=== PATIENT | female | born 1935 | race Caucasian/White ===

== ENCOUNTER 2019-11-19 08:28 | Outpatient (CLI) | payer MEDICARE, SELFPAY ==
--- NOTE | ~2019-11-19 | XR_ITS ---
EXAMINATION: XR barium swallow DATE: 11/19/2019 09:17 INDICATION: Dysphagia, unspecified TECHNIQUE: The patient drank thick barium, gas-producing crystals, and thin barium. Fluoroscopy of th e hypopharynx and esophagus was performed. Fluoroscopy exposure time was 1.6 minutes. The DAP for thi s procedure was 5.103 Gycm2. COMPARISON: 12/29/2007 FINDINGS: There is no mass or stricture of the esophagus. Mild presbyesophagus is noted. There is a l arge hiatal hernia with the stomach now intrathoracic in location. 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 There was no definite gastroesophageal reflux. Moderate cervical spondylosis is noted.] IMPRESSION: 1. Intrathoracic stomach with organoaxial volvulus. 2. Mild presbyesophagus. Reviewed, dictated and finalized at location A.
== END 2019-11-19 08:29 | disposition home or self-care (01) ==
PROVIDERS: PCP Internal Medicine; Visit Provider Nurse Practitioner
DX: R13.10 Dysphagia, unspecified (principal); K22.8 Other specified diseases of esophagus
CPT/HCPCS: 74220

== ENCOUNTER → 2020-09-27 10:30 | Outpatient (CLI) | payer MEDICARE, SELFPAY ==
--- NOTE | ~2020-09-27 | XR_ITS ---
EXAMINATION: XR chest 2V DATE: 09/27/2020 10:52 INDICATION: Shortness of breath. TECHNIQUE: Frontal and lateral views of the chest were obtained. COMPARISON: Chest 2 views 07/29/2007 FINDINGS: There is a large hiatal hernia. There are airspace opacities in left lower lung zone. No pl eural effusion or pneumothorax. The heart size is normal. Surgical clips in the right upper quadrant are likely from cholecystectomy. IMPRESSION: 1. Large hiatal hernia. 2. Airspace opacities in left lower lung zone, consistent with atelectasis versus pneumonia. Reviewed, dictated and finalized at location A. IMPRESSION: 1. Large hiatal hernia. 2. Airspace opacities in left lower lung zone, consistent with atelectasis vers us pneumonia.
== END ==
PROVIDERS: PCP Internal Medicine; Visit Provider Nurse Practitioner
DX: R06.02 Shortness of breath (principal); K44.9 Diaphragmatic hernia without obstruction or gangrene; R91.8 Other nonspecific abnormal finding of lung field
CPT/HCPCS: 71046

== ENCOUNTER 2020-11-13 12:16 | Outpatient (CLI) | payer MEDICARE, SELFPAY ==
--- NOTE | 2020-11-13 17:01 | WPDPFTINT ---
PFT Procedure Performed PFT Procedure Performed Plethysmography (Lung Vol) Diffusing Cap (DLCO) Flow Vol Loop Spirometry w/o Bronchodil PFT Interpretation This is a pulmonary function test with spirometry, plethysmography and diffusing capacity. The test was performed and results interpreted in accordance with the 2019 and 2005 ATS/ERS Task Force guidelines respectively using the Global Lung Function Initiative-2012 reference equations. Patient demonstrated good effort and cooperation. Reproducibility criteria were met. The quality of the spirometry maneuver was Grade A. Findings: Spirometry: the contour of the inspiratory and expiratory flow tracing are normal. The FVC is 1.68 L, 72% predicted. The FEV1 is 1.24 L, 70% predicted. The FEV1: FVC ratio 74%. Plethysmography: The total lung capacity is 4.38 L, 89% predicted. The functional residual capacity is 1.79 L, 63% predicted. The residual volume is 1.76 L, 73% predicted. Diffusing capacity: The absolute diffusion capacity is 7.5, 41% predicted. The diffusing capacity corrected for alveolar volume is 2.64, 64% predicted. Impression: The spirometry is normal without evidence of an obstructive abnormality. There is a reduction in the functional residual capacity with a normal total lung capacity. This is an abnormal but nonspecific lung volume pattern. The absolute diffusion capacity is moderately decreased and remains mildly decreased when corrected for alveolar volume. There are no prior studies for comparison
== END 2020-11-13 12:17 | disposition home or self-care (01) ==
LOC: ANHPFT 12:21
PROVIDERS: PCP Internal Medicine; Visit Provider Nurse Practitioner
DX: R06.02 Shortness of breath (principal)
CPT/HCPCS: 94375; 94726; 94729

== ENCOUNTER 2022-09-17 09:23 | Outpatient (CLI) | payer MEDICARE, SELFPAY ==
--- NOTE | 2022-09-17 09:37 | ECHO_ITS ---
Patient Info Name: Lima Garcia Age: 87 years : 1935 Gender: Female Ht: 60 in Wt: 145 lbs BSA: 1.69 m2 HR: 115 bpm BP: 168 / 92 mmHg Heart Rhythm: Sinus Rhythm Technical Quality: Good Exam Date: 09/17/2022 10:56 AM Exam Location: [facility] Patient Status: Outpatient Admit Date: 09/17/2022 Staff Ordering Physician: Piero Kaiser MD Head Refrigeration Engineer: Pau Ramos RDCS Attending Provider: Piero Kaiser MD Referring Physician: Job CASTELLON; Exam Type: CA echo doppler color flow Study Info Indications - AORTIC MURMUR Complete two-dimensional, color flow and Doppler transthoracic echocardiogram is performed. Summary 1. Complete two-dimensional, color flow and Doppler transthoracic echocardiogram is performed. 2. Left ventricular chamber dimension is normal. 3. Left ventricular systolic function is normal, estimated at 60-65%. 4. The left ventricular diastolic function is grade I diastolic dysfunction. 5. E/e' 16 is elevated. 6. There is severe aortic valve sclerosis. 7. There is severe aortic valve stenosis with a peak velocity of 272 cm/s, mean gradient of 14 mmHg, and aortic valve area of 0.7 cm2. 8. There is trace aortic valve regurgitation. 9. The mitral valve has mildly calcified leaflets and moderately calcified annulus. 10. There is mild tricuspid valve regurgitation. 11. No pulmonary hypertension, estimated pulmonary arterial systolic pressure is 31 mmHg. Left Ventricle E/e' 16 is elevated. Left ventricular chamber dimension is normal. Left ventricular systolic function is normal, estimated at 60-65%. The left ventricular diastolic function is grade I diastolic dysfunction. Right Ventricle Right ventricular systolic function is normal and with normal TAPSE 2.2 cm. Right ventricular chamber dimension is normal. Left Atria Left atrial chamber dimension is normal. Right Atria Right atrial chamber dimension is normal. Aortic Valve The aortic valve is trileaflet. There is severe aortic valve sclerosis. There is severe aortic valve stenosis with a peak velocity of 272 cm/s, mean gradient of 14 mmHg, and aortic valve area of 0.7 cm2. There is trace aortic valve regurgitation. Pulmonic Valve There is no pulmonic regurgitation. Mitral Valve The mitral valve has mildly calcified leaflets and moderately calcified annulus. There is no mitral valve stenosis. There is no mitral valve regurgitation. Tricuspid Valve There is mild tricuspid valve regurgitation. No pulmonary hypertension, estimated pulmonary arterial systolic pressure is 31 mmHg. Pericardium/Pleural There is no pericardial effusion. Inferior Vena Cava Normal inferior vena cava with >50% collapse upon inspiration consistent with normal right atrial pressure, 5 mmHg. Aorta The aortic root size at the sinus of Valsalva is normal. Left Ventricular Outflow Tract Name Value Normal LVOT 2D LVOT Diameter 1.7 cm LVOT Doppler LVOT Peak Gradient 3 mmHg LVOT Mean Gradient 2 mmHg LVOT VTI 21 cm LVOT VTI/AV VTI Ratio 0.3 LVOT Stroke Volume 47 ml Pulmonic Valve
== END 2022-09-17 09:24 | disposition home or self-care (01) ==
PROVIDERS: PCP Family Medicine; Visit Provider Family Medicine
DX: R01.1 Cardiac murmur, unspecified (principal); I36.1 Nonrheumatic tricuspid (valve) insufficiency
CPT/HCPCS: 93306

== ENCOUNTER 2022-11-15 00:16 | Day surgery (SDC) | payer MEDICARE, SELFPAY ==
[2022-11-14 14:35] VITALS: BMI 28.3
[2022-11-15] VITALS (9 sets, daily range): BP systolic 159–188; BP diastolic 66–96; PULSE 76–83; RESP 12–16; TEMP 36.3–36.9; O2SAT 93–100; BMI 27.5
--- NOTE | 2022-11-15 10:33 | ECHO_ITS ---
Patient Info Name: Lima Garcia Age: 87 years : 1935 Gender: Female Ht: 60 in Wt: 145 lbs BSA: 1.69 m2 HR: 82 bpm BP: 174 / 75 mmHg Heart Rhythm: Sinus Rhythm Technical Quality: Good Exam Date: 11/15/2022 10:51 AM Exam Location: [facility] Patient Status: Outpatient Admit Date: 11/15/2022 Staff Ordering Physician: Nathan Mishra DO Jewel Lathe Operator: Nazia Izaguirre RDCS Attending Provider: Nathan Mishra DO Referring Physician: Tad ZUNIGA; Exam Type: CA echo transesophageal Study Info Indications I35.0 - Nonrheumatic aortic (valve) stenosis Complete two-dimensional, color flow and Doppler transesophageal study is performed. Procedure Details Risks/benefits/alternative to JUDY discuss with patient and she gave informed consent. Patient was monitored electrocardiographically, vitals and pulse ox and they remained stable. Cecacaine spray x 2 to posterior oropharynx. Fenatanyl 50 mcg and Versed 2 mg IV given for conscious sedation. JUDY probe advanced to oropharynx and she swallowed it without incident. Mulitiple images were obtained at various levels of esophagus. Agitated saline injection x1. JUDY probe withdrawn and no blood noted on probe tip. Patient tolerated procedure well. No complications. Summary 1. Left ventricular chamber dimension is normal. 2. There is mild concentric increased left ventricular wall thickness. 3. Left ventricular systolic function is normal with an ejection fraction of 60-65%. 4. Left atrial chamber dimension is severely enlarged. 5. There is severe aortic valve sclerosis. 6. There is trace aortic valve regurgitation. 7. There is severe aortic valve stenosis with valve area of 0.7 cm2 by planimetry. 8. The mitral valve has mildly calcified annulus. 9. There is trace tricuspid valve regurgitation. Left Ventricle Left ventricular systolic function is normal with an ejection fraction of 60-65%. The left ventricular diastolic function is indeterminate as it was not assessed.. Left ventricular chamber dimension is normal. There is mild concentric increased left ventricular wall thickness. Right Ventricle Right ventricular chamber dimension is normal. Right ventricular systolic function is normal. Left Atria Left atrial chamber dimension is severely enlarged. Right Atria Right atrial chamber dimension is normal. Atrial Septum Agitated saline injection opacified right side cardiac chambers without shunt to left side cardiac chambers. Intact interatrial septum visualized by 2D and agitated saline imaging. Atrial Appendage There is no thrombus visualized in the left atrial appendage. Aortic Valve There is severe aortic valve stenosis with valve area of 0.7 cm2 by planimetry. The aortic valve is trileaflet. There is severe aortic valve sclerosis. There is trace aortic valve regurgitation. Pulmonic Valve There is no pulmonic regurgitation. Mitral Valve The mitral valve has mildly calcified annulus. There is no mitral valve stenosis. There is no mitral valve regurgitation. Tricuspid Valve There is trace tricuspid valve regurgitation. Pericardium/Pleural There is no pericardial effusion. Inferior Vena Cava Inferior vena cava is not well visualized. Aorta The aortic root size at the sinus of Valsalva is normal. Report Signatures
== END 2022-11-15 13:15 | disposition home or self-care (01) ==
PROVIDERS: PCP Family Medicine; Visit Provider Internal Medicine Cardiovascular Disease
PROC: (CPT 93312; principal; 2022-11-15 11:15)
DX: I35.0 Nonrheumatic aortic (valve) stenosis (principal); I35.1 Nonrheumatic aortic (valve) insufficiency; I35.8 Other nonrheumatic aortic valve disorders; I34.81 Nonrheumatic mitral (valve) annulus calcification; I10 Essential (primary) hypertension; E78.2 Mixed hyperlipidemia; K21.9 Gastro-esophageal reflux disease without esophagitis
CPT/HCPCS: 93312; 93320; 93325; J2250; J2310; J3010; J7040

== ENCOUNTER 2022-12-04 01:20 | Day surgery (SDC) | payer MEDICARE, SELFPAY ==
[2022-12-03 11:02] VITALS: BMI 28.3
[2022-12-04] VITALS (10 sets, daily range): BP systolic 105–157; BP diastolic 54–103; PULSE 76–97; RESP 12–20; TEMP 36.6; O2SAT 92–97; BMI 28.8
[2022-12-04 09:03] LABS: Basophils Absolute Auto 0.1 K/mm3 (0.0-0.1); Eosinophils Absolute Auto 0.4 K/mm3 (0-0.3); Eosinophils Percent Auto 5.5 % (0-4.4); Hematocrit 40.3 % (37.0-47.0); Immature Granulocyte Absolute 0.03 K/mm3 (0.00-0.031); Immature Granulocyte Percent A 0.4 % (0-0.5); Lymphocytes Absolute Auto 2.06 K/mm3 (0.9-3.2); Lymphocytes Percent Auto 25.9 % (18.3-44.2); Mean Corpuscular HGB Conc 32.3 g/dl (32-36); Mean Corpuscular Hemoglobin 29.9 pg (26-34); Mean Corpuscular Volume 92.6 fl (80-100); Mean Platelet Volume 8.8 fl (7.4-10.4); Monocytes Absolute Auto 0.9 K/mm3 (0.1-0.6); Monocytes Percent Auto 11.2 % (2.6-8.5); Neutrophils Absolute Auto 4.4 K/mm3 (1.3-6.7); Platelet Count Result 323 k/mm3 (150-375); Red Blood Count 4.35 M/mm3 (4.2-5.4); Red Cell Distribution Width 12.9 % (11.5-14.5); White Blood Count 7.9 K/mm3 (4.5-10.0)
[2022-12-04 09:08] LABS: Anion Gap 6 mmol/L (8-16); Blood Urea Nitrogen 21 mg/dL (7-17); Carbon Dioxide 28 mmol/L (22-30); Chloride 104 mmol/L (98-107); Estimated CRCL calculation 37 ml/min; Estimated Glomerular Filt Rate > 60; Glucose 96 mg/dL (65-110); Potassium 4.1 mmol/L (3.4-5.0); Sodium 138 mmol/L (137-145)
--- NOTE | 2022-12-04 09:54 | WPDHPUPDATE1 ---
History and Physical Update Update Date/Time: 12/04/22 09:54 History and Physical has been reviewed, including an updated exam of the patient. There are NO changes in the patient's condition. Risks, benefits, and alternatives have been discussed and questions answered. Patient agrees to proceed with procedure.
--- NOTE | 2022-12-04 09:54 | WPDMODSED ---
Moderate Sedation Note-Pt Data Patient Data Diagnosis: Severe aortic stenosis Present Complaint: Severe aortic stenosis Procedure to be performed/Plan: Coronary angiography, left heart cath, right heart cath, +/- PCI Allergies Allergy/AdvReac Type Severity Reaction Status Date / Time atorvastatin Allergy Severe CANT Verified 12/04/22 08:57 BREATHE; ARMS AND LEGS FEEL HEAVY BREANA Inhibitors Allergy Unknown Hives Verified 12/04/22 08:57 clarithromycin Allergy Unknown hives Verified 12/04/22 08:57 Home Medications Medication Instructions Recorded Confirmed Type cholecalciferol (vitamin D3) 25 25 mcg PO DAILY 10/31/21 12/03/22 History mcg (1,000 unit) tablet diltiazem HCl 300 mg 300 mg PO DAILY #90 caps 05/06/22 12/03/22 Rx capsule,extended release 24 hr (Cartia XT) sertraline 100 mg tablet 150 mg PO DAILY #135 tabs 07/29/22 12/03/22 Rx losartan 100 mg tablet See Rx Instructions .Route 08/28/22 12/03/22 Rx .COMPLEX #90 tabs qtrczwp-okqiivxvrn-IVO-caffeine 30 2 cap PO HS PRN headache 11/14/22 12/03/22 History mg-50 mg-325 mg-40 mg capsule (Ascomp with Codeine) vit C 250 mg-E 90 mg-zinc 40 2 tablet PO DAILY 11/14/22 12/03/22 History mg-copper 1 it-jyiesw-twzuld chew tablet (PreserVision AREDS-2) lorazepam 1 mg tablet 1 mg PO TID PRN anxiety #80 tabs 11/17/22 12/04/22 Rx vitamin B complex (B 3 tablet PO DAILY 12/03/22 12/03/22 History Complex-Vitamin B12 tablet) Current Medications: Active Medications Sodium Chloride (Normal Saline Iv) 500 mls @ 100 mls/hr IV CONT .Q5H ZAYNAB Sedation/Anesthesia: No previous sedation/anesthesia problems (including family history). [facility] Past Medical History Medical History Cataract Chronic GERD Essential hypertension GERD (gastroesophageal reflux disease) Hiatal hernia Iron deficiency anemia Migraine Mixed hyperlipidemia Surgical History Surgical History History of appendectomy open appendectomy History of knee replacement Hx of cholecystectomy Laparoscopic cholecystectomy Family History Family History Father Family history of malignant neoplasm Acute myocardial infarction Sibling Family history of malignant neoplasm Mother Cancer Heart disease Unknown Cerebrovascular accident Other Family history of cardiovascular disease Social History Social History Social History: 2 cups coffee daily Smoking status: Never smoker Second hand tobacco smoke exposure: No Alcohol intake: never Substance use: never Substance use type: does not use Lack of Transportation: No Lack of Food: Never True Current Housing: I Have Housing Concerned About Future Housing: No Difficulty Paying Gas/Electric Bills: No Difficulty Paying for Meds: No Currently Unemployed: No Education: High School Diploma/GED Difficulty w/ Childcare or Family Care: No Living arrangements: with family Additional living arrangements comments: lives with daughter Occupation/Education: retired Gender identity (if verbalized by the patient): Female Spiritual care concerns: No Mod Sed Physical Exam Physical Exam Pre Procedural Exam: Normal: Appearance, Lungs, Heart Rate, Heart Rhythm, Neuro Exam, Abdomen, Extremities and Skin Hours since solid foods: 12 Hours since liquid intake: 8 Mallampati Classification: class II Internal Medicine - PN: Obj Da Vital Signs Vital Signs: Vital Signs - 24 hr 12/04/22 09:02 Temperature 36.6 C Pulse Rate 76 Respiratory Rate 16 Blood Pressure 148/70 H Pulse Oximetry 95 Oxygen Delivery Room Air Meds/Results Medications: Active Medications Generic Name Dose Route Start Last Admin Trade Name Freq PRN Reason Stop Dose Admin Sodium Chloride 500 mls @
--- NOTE | 2022-12-04 11:00 | WPDCARDPROC ---
Cardiac Cath Procedure Note Date of procedure:: 12/04/22 Performing physician:: CATHETERIZATION LABORATORY REPORT Procedure Date: 12/04/2022 Washer Blanket: Arnie Judd M.D., [facility]? Referring Physician: Dr. Nathan Mishra ? Anesthesia: Versed and Fentanyl were ordered and given in my presence at 10:14, procedure ended at 10:53. Supervision of nurse monitored moderate sedation with Versed and Fentanyl was provided for 39 minutes. Total of Versed 1.5mg and Fentanyl 50mcg were administered by the [employer] Testing Supervisor JOVANI Montelongo Pre-op Diagnosis: Severe aortic stenosis Post-op Diagnosis: 1. Non-obstructive coronary artery disease 2. Elevated right heart filling pressures 3. 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 Preserved cardiac output of 5.3 by Yomi 5. Preserved cardiac index of 3.3 by Yomi Procedure(s): 1. Moderate sedation 2. Ultrasound-guided access of the right common femoral artery and right femoral vein 3. Right heart cath 4. Coronary angiography 5. Angioseal closure of the right common femoral artery Access Site: Right common femoral artery Right femoral vein Brief History and Clinical Indications: Patient is an 87-year-old female who is referred for [facility] for severe aortic stenosis. All risks, benefits and alternatives to coronary angiography with or without percutaneous coronary intervention and right heart catheterization was discussed at length with the patient. Risk of complications including but not limited to bleeding, infection, arrhythmia, stroke, worsening kidney function, blood loss, groin hematoma, limb loss, emergency coronary artery bypass grafting, and even were discussed with the patient and all questions were answered. The patient understood and wished to proceed. Time out called, patient name, date of , medical record number, allergies, procedure performed, identify Washer Blanket, patient and staff member concurred with accurate data, procedure carried on. Findings: LEFT HEART CATHETERIZATION FINDINGS: 1. Left main: Large caliber vessel. The left main is calcified. The left main coronary artery is widely patent without any significant obstructive disease. 2. Left anterior descending: Large caliber vessel that tapers to small caliber distally. The LAD is a heavily calcified vessel. The LAD has mild diffuse disease without any significant obstructive angiographic disease. The diagonal branches are of very small caliber and diffusely diseased. 3. Left circumflex: Large caliber vessel. The left circumflex artery and the main marginal branches have mild diffuse disease without any significant obstructive angiographic disease. 4. Right coronary artery: Large caliber vessel. The RCA is a calcified vessel. The RCA is the dominant vessel. The RCA has mild diffuse disease without any significant obstructive angiographic disease. 5. Left ventricle: The aortic valve was not crossed due to known severe aortic stenosis. RIGHT HEART CATHETERIZATION FINDINGS: Pressures (mmHg): RA: 11mmHg RV: 39/14mmHg PA: 45/18mmHg with mean of 29mmHg PCWP: 17mmHg Saturations (%): PA: 64.5% Arterial: 86.2% CO/CI: Yomi CO: 5.3 Yomi CI: 3.3 PVR (VELASQUEZ): 2.2 Description of Procedure: Informed consent signed and placed in the chart. Patient transferred to director of cardiac cath lab room. Prepped and draped in usual sterile fashion. 2% lidocaine injected subcutaneously in right groin area. Micropuncture needle used to access right common femoral artery under ultrasound guidance. J wire advanced, micropuncture cannula placed. Right iliofemoral angiogram performed, access confirmed and micropuncture cannula exchanged for 5-FR sheath. Right femoral vein was accessed using micropuncture technique under ultrasound guidance. 7-FR sheath placed. 7F [place] catheter was advanced into the right side of the heart chambers and pressures were measured. 5F FL 4 diagnostic c
== END 2022-12-04 14:12 | disposition home or self-care (01) ==
PROVIDERS: PCP Family Medicine; Visit Provider Internal Medicine
PROC: (CPT 93566; principal; 2022-12-04 10:00)
DX: I35.0 Nonrheumatic aortic (valve) stenosis (principal); I25.10 Atherosclerotic heart disease of native coronary artery without angina pectoris; I27.20 Pulmonary hypertension, unspecified; I10 Essential (primary) hypertension; E78.2 Mixed hyperlipidemia
CPT/HCPCS: 36415; 80048; 85025; 93456; A9270; C1760; C1769; C1887; C1894; G0269; J1644; J2250; J3010; J7040

== ENCOUNTER 2023-03-27 20:43 | Emergency (ER) | payer MEDICARE, SELFPAY ==
--- NOTE | ~2023-03-27 | XR_ITS ---
EXAMINATION: XR chest PICC line DATE: 03/27/2023 20:56 INDICATION: PICC line placement TECHNIQUE: frontal view of the chest was obtained. COMPARISON: Chest radiograph dated 10/05/2020 FINDINGS: Left upper extremity peripherally inserted central venous catheter (PICC) tip at the junction of the left brachiocephalic vein and superior vena cava. Large hiatal hernia which projects over the left l ower lung zone with configuration better appreciated on prior esophagram dated 11/19/2019. No other ai rspace opacities, pulmonary edema, pleural effusion or pneumothorax. Heart size within normal limits for AP technique. Aortic valve repair. Cholecystectomy clips in right upper quadrant. Additional surg ical clips project over the upper lumbar spine. Moderate thoracic and severe upper lumbar spondylosis . IMPRESSION: 1. Left upper extremity PICC line tip at the junction of the left brachiocephalic vein and superior v omar cava. 2. Large hiatal hernia. Reviewed, dictated and finalized at location A. RVISOR RIPRAP PLACING IMPRESSION: 1. Left upper extremity PICC line tip at the junction of the left brachiocephal ic vein and superior vena cava. 2. Large hiatal hernia.
--- NOTE | ~2023-03-27 | CT_ITS ---
EXAMINATION: CT brain wo con DATE: 03/27/2023 22:39 INDICATION: Altered mental status TECHNIQUE: Computed tomography (CT) of the head was performed without intravenous contrast. Sagittal and coronal reconstructions were performed. The mA was adjusted according to patient size. Iterative reconstruction technique was employed. The dose-length product was 1135.00 mGy-cm. COMPARISON: head CT dated 02/27/11 FINDINGS: No acute intracranial hemorrhage, acute infarction or abnormal extra axial fluid collection. There is mild scattered white matter hypoattenuation consistent with chronic small vessel ischemic disease. S ymmetric prominence of the sulci consistent with mild age-appropriate diffuse cerebral volume loss. V entricles are normal and symmetric. No mass/mass effect. Mild mucosal thickening in the right maxilla ry sinus which also demonstrates thickened sclerotic bowers consistent with chronic sinusitis. The orb its and mastoid air cells are normal. Intracranial calcified cerebral atherosclerosis is noted. IMPRESSION: 1. No acute intracranial process. 2. Age-related changes including mild diffuse volume loss and mild scattered white matter hypoattenua tion consistent with chronic small vessel ischemic disease. Reviewed, dictated and finalized at location A. [facility] WORKER IMPRESSION: 1. No acute intracranial process. 2. Age-related changes including mild diffuse volume loss and mild scattered wh ite matter hypoattenuation consistent with chronic small vessel ischemic diseas e.
--- NOTE | ~2023-03-27 | CT_ITS ---
EXAMINATION: CTA chest PE abdomen pel DATE: 03/27/2023 22:40 INDICATION: Hypoxia TECHNIQUE: Computed tomography (CT) pulmonary angiogram of the chest was performed with 100 mL Omnipa que-350 intravenous contrast. Additional 3D reconstructions utilizing coronal maximum intensity proje ction (MIP) were performed. CT of the abdomen and pelvis was performed with intravenous contrast util izing the same contrast bolus following a short delay. Automated exposure control and iterative recon struction technique were employed. The dose-length product was 1831.00 mGy-cm. COMPARISON: CT abdomen pelvis dated 09/16/2007 FINDINGS: Chest: Excellent contrast opacification of the pulmonary arteries. There is mild streak artifact from dense contrast in the superior vena cava and right atrium. Mild scattered respiratory motion artifact which does not significantly limit evaluation. No pulmonary embolism. Very small bilateral posterior layer ing pleural effusions. There is consolidation with volume loss in the posterior basilar left lower lo be likely related to compressive atelectasis resulting from the large sliding-type hiatal hernia whic h contains nearly the entire stomach and and occupies the posterior half of the lower left hemithorax . Superimposed pneumonia in the collapsed portion of the left lower lobe is not excludable. There are scattered mild patchy groundglass opacities most prominent in the right upper lobe which could repre sent atelectasis, pneumonia or mild pulmonary edema. Cardiomegaly. Atherosclerotic coronary artery ca lcifications. No pericardial effusion. Status post aortic valve repair. Thoracic aorta is normal in c aliber with no dissection. Mild mediastinal and right hilar lymphadenopathy which more notable for nu mber than size and is likely reactive. Severe thoracic and lower cervical spondylosis. Abdomen/pelvis: Mild intrahepatic biliary ductal dilation which may be related to prior cholecystectomy with surgical clips at the gallbladder fossa. No evident dilation of the common bile duct. There is otherwise unre markable. Interval progression of now prominent fatty atrophy of the pancreas. Spleen, bilateral adre nal glands and kidneys are normal. Endoluminal stenting of the infrarenal aorta. No aneurysm. No casandra l obstruction. Mild diverticulosis along the sigmoid colon without adjacent inflammatory stranding to suggest diverticulitis. 2.1 cm enhancing fibroid at the lower uterine segment. Decompressed bladder is unremarkable. Small subcutaneous abscesses at the right inguinal region which likely represents a reported dehiscen t wound at this location. There several surgical clips surrounding the deeper abscess located lung th e anterior margin of the right common femoral artery which are likely related to prior vascular surge ry. There is a larger partially visualized intramuscular abscess extending at least 11.5 cm craniocau dally and measuring at least 5.9 x 3.1 cm in maximal transaxial dimensions within the quadriceps musc ulature at the proximal right thigh. There is also a 10.3 x 8.9 x 6.7 similar rim-enhancing loculated retroperitoneal fluid collection at the lateral right pelvis. There is however minimal surrounding i nflammatory stranding and is unclear whether this represents an additional abscess or possibly a paty anisha. There is a small tract extending from this fluid collection cephalad along side the right gonad al vein to near its confluence with the right renal vein. IMPRESSION: 1. No pulmonary embolism. 2. Mild scattered bilateral patchy groundglass opacities most prominent in the right upper lobe which could represent atelectasis, pneumonia or mild pulmonary edema. 4. Partial collapse of the posterior basilar left lower lobe likely resulting from mass effect from a large hiatal hernia which contains the majority the stomach. Superimposed pneumonia not excludable. 5. Cardiomegaly with aortic valve repair.
--- NOTE | 2023-03-27 20:45 | ECG_ITS ---
Measurements Intervals Bowler Rate: 93 P: 45 [place]: 185 QRS: -17 QRSD: 85 T: 85 QT: 389 QTc: 484 Interpretive Statements SINUS RHYTHM POSSIBLE LEFT ATRIAL ENLARGEMENT CONSIDER ANTERIOR INFARCT, AGE INDETERMINATE INFERIOR INFARCT, AGE INDETERMINATE NONSPECIFIC T-WAVE ABNORMALITY- HIGH LATERAL LEADS ABNORMAL ECG NO PREVIOUS ECG AVAILABLE FOR COMPARISON Electronically Signed On 03-27-2023 22:15:28 AUTOMOBILE REPOSSESSOR by Nathan Mishra D.O.
[2023-03-27 20:50] LABS: Glucose Point of Care 144 mg/dl (65-105)
[2023-03-27 20:52] VITALS: BP 143/64; PULSE 82; PULSE 85; RESP 14; TEMP 36.5; O2SAT 100
[2023-03-27 21:45] LABS: Basophils Absolute Auto 0.1 K/mm3 (0.0-0.1); Basophils Percent Auto 1.2 % (0.2-1.2); Eosinophils Absolute Auto 0.4 K/mm3 (0-0.3); Eosinophils Percent Auto 6.2 % (0-4.4); Hematocrit 32.5 % (37.0-47.0); Hemoglobin 10.1 g/dL (12.0-15.0); Immature Granulocyte Absolute 0.06 K/mm3 (0.00-0.031); Immature Granulocyte Percent A 0.9 % (0-0.5); Lymphocytes Absolute Auto 1.64 K/mm3 (0.9-3.2); Lymphocytes Percent Auto 24.9 % (18.3-44.2); Mean Corpuscular HGB Conc 31.1 g/dl (32-36); Mean Corpuscular Hemoglobin 30.3 pg (26-34); Mean Corpuscular Volume 97.6 fl (80-100); Mean Platelet Volume 8.8 fl (7.4-10.4); Monocytes Percent Auto 15.3 % (2.6-8.5); Neutrophils Absolute Auto 3.4 K/mm3 (1.3-6.7); Neutrophils Percent Auto 51.5 % (45.5-73.1); Platelet Count Result 165 k/mm3 (150-375); Red Blood Count 3.33 M/mm3 (4.2-5.4); White Blood Count 6.6 K/mm3 (4.5-10.0)
[2023-03-27 21:56] LABS: Alanine Aminotransferase 10 U/L (6-35); Alkaline Phosphatase 100 U/L (38-126); Anion Gap 5 mmol/L (8-16); Aspartate Amino Transferase 27 U/L (14-36); Bilirubin,Total 0.8 mg/dL (0.2-1.3); Blood Urea Nitrogen 16 mg/dL (7-17); Carbon Dioxide 30 mmol/L (22-30); Chloride 99 mmol/L (98-107); Estimated Glomerular Filt Rate > 60; Glucose 132 mg/dL (65-110); INR 1.2; Magnesium 1.8 mg/dL (1.6-2.3); Potassium 3.7 mmol/L (3.4-5.0); Prothrombin Time 15.5 Seconds (11.1-14.7); Sodium 134 mmol/L (137-145)
[2023-03-27 21:57] LABS: Partial Thromboplastin Time 28.4 SECONDS (22.3-36.8)
[2023-03-27 21:58] LABS: Alveolar/Arterial O2 Gradient 5.7 mmHg; Base Excess ABG 5.4 mEq/l (+/-2.0); Fractional Inspired Oxygen 28 %; HCO3 ABG 30.9 mEq/l (22.0-26.0); Oxygen Content ABG 14.7 %vol (16.0-22.0); Oxygen Saturation ABG 98.7 % (95.0-100.0); Oxyhemoglobin 96.2 % THb (90.0-100.0); PCO2 ABG 49.6 mmHg (35.0-45.0); PO2 ABG 135.4 mmHg (80.0-100.0); PO2 FiO2 Ratio Arterial Blood 4.84 %; Total Hemoglobin 10.7 g/dL (12.0-18.0); pH ABG 7.412 (7.350-7.450)
[2023-03-27 21:59] LABS: Device NASAL CANNULA; Modified Allen's Test Pass; Site Drawn RIGHT RADIAL
[2023-03-27 22:08] LABS: Appearance Urine Cloudy (Clear); Bacteria Urine None Seen /hpf; Bilirubin Urine Negative (Negative); Blood Urine 2+ (Negative); Color Urine Dark Yellow (Yellow); Glucose Urine UA Negative (Negative); Ketones Urine Trace mg/dL (Negative); Leukocyte Esterase Ur Negative LEU/UL (Negative); Mucus Urine Present /lpf; Need Manual Microscopic Reviewed; Nitrate Urine Negative (Negative); Protein Urine 2+ mg/dL (Negative); RBC Urine 0-2 /hpf (0-2); Specific Grav Ur 1.021 (1.001-1.035); Squamous Epithelial Cell Urine Few /hpf (Few); Urobilinogen Urine 0.2 mg/dL (<2.0); WBC Urine 0-5 /hpf
[2023-03-27 22:09] LABS: Add Urine Microscopic? YES
[2023-03-27 22:24] LABS: Influenza A QL RT-PCR Negative (Negative); Influenza B QL RT-PCR Negative (Negative); RSV RNA, RT-PCR Negative (Negative); SARS-CoV-2 RNA PCR Negative (Negative)
[2023-03-27 22:25] LABS: Procalcitonin 0.2 ng/mL
[2023-03-27 23:30] VITALS: BP 114/62; PULSE 82; RESP 14; O2SAT 100
[2023-03-28] VITALS (27 sets, daily range): BP systolic 105–136; BP diastolic 38–71; PULSE 80–112; RESP 12–20; TEMP 36.2; O2SAT 97–100
[2023-03-28 01:25] LABS: Troponin I 0.064 ng/mL (0.000-0.034)
--- NOTE | 2023-03-28 01:32 | PC.NURSE ---
spoke w/ [facility] transfer center states pt. accepted to tele floor by Dr. Abraham, no room at this time.
--- NOTE | 2023-03-28 01:37 | PC.NURSE ---
pt. daughter states she is going to go home. can be contacted at [phone]
--- NOTE | 2023-03-28 03:14 | ED.GENADULT ---
HPI - General Adult General Chief complaint: Altered Mental Status <Tahir Flowers MD - Last Filed: 03/28/23 03:18> Stated complaint: ams/hypoxic <Tahir Flowers MD - Last Filed: 03/28/23 03:18> Time Seen by Provider: 03/27/23 20:54 <Tahir Flowers MD - Last Filed: 03/28/23 03:18> History of Present Illness HPI narrative: patient is a 87-year-old female who presents emerged part with chief complaint of altered mental status. Per the patient's family the patient was seeing spiders and was confused today. The patient is normally were oriented 4 but was fully alert oriented x2 upon initial arrival emergency department. The patient was found to be hypoxic by EMS and was started on 2 L nasal cannula the patient had a procedure at [facility] and then was transferred to [place] after complication the patient subsequently has infections in her right groin and abdomen that she has a PICC line and is receiving IV antibiotics for the patient reports that she feels better after being on the oxygen. <Tahir Flowers MD - Last Filed: 03/28/23 03:18> Related Data Home medications: Home Medications Medication Instructions Recorded Confirmed cholecalciferol (vitamin D3) 25 25 mcg PO DAILY 10/31/21 01/21/23 mcg (1,000 unit) tablet vit C 250 mg-E 90 mg-zinc 40 2 tablet PO DAILY 11/14/22 01/21/23 mg-copper 1 [id number] chew tablet (PreserVision AREDS-2) vitamin B complex (B 3 tablet PO DAILY 12/03/22 01/21/23 Complex-Vitamin B12 tablet) <Tahir Flowers MD - Last Filed: 03/28/23 03:18> Allergies/adverse reactions: Allergies Allergy/AdvReac Type Severity Reaction Status Date / Time atorvastatin Allergy Severe CANT Verified 01/21/23 10:55 BREATHE; ARMS AND LEGS FEEL HEAVY BREANA Inhibitors Allergy Unknown Hives Verified 01/21/23 10:55 clarithromycin Allergy Unknown hives Verified 01/21/23 10:55 <Tahir Flowers MD - Last Filed: 03/28/23 03:18> Review of Systems Review of Systems: A 10 system review of systems was completed on the patient and is negative except for what is stated in the HPI. Nursing and ancillary documentation was reviewed. <Tahir Flowers MD - Last Filed: 03/28/23 03:18> [facility] Past Medical History Medical History: Medical History Cataract Chronic GERD Essential hypertension GERD (gastroesophageal reflux disease) Hiatal hernia Iron deficiency anemia Migraine Mixed hyperlipidemia <Tahir Flowers MD - Last Filed: 03/28/23 03:18> Surgical History Surgical History: Surgical History History of appendectomy open appendectomy History of knee replacement Hx of cholecystectomy Laparoscopic cholecystectomy <Tahir Flowers MD - Last Filed: 03/28/23 03:18> Family History Family History: Family History Father Family history of malignant neoplasm Acute myocardial infarction Sibling Family history of malignant neoplasm Mother Cancer Heart disease Unknown Cerebrovascular accident Other Family history of cardiovascular disease <Tahir Flowers MD - Last Filed: 03/28/23 03:18> Social History Social History: Social History Social History: 2 cups coffee daily Smoking status: Never smoker Second hand tobacco smoke exposure: No Alcohol intake: never Substance use: never Substance use type: does not use Lack of Transportation: No Lack of Food: Never True Current Housing: I Have Housing Concerned About Future Housing: No Difficulty Paying Gas/Electric Bills: No Difficulty Paying for Meds: No Currently Unemployed: No Education: High
[2023-03-28] MEDS: CEFEPIME 2 GM/NS 50 ML 2 GM/50 ML BAG IVPB ×2 (07:26→20:53)
[2023-03-28 11:04] LABS: MRSA (PCR) NOT DETECTED (NOT DETECTE)
--- NOTE | 2023-03-28 11:09 | PC.NURSE ---
Bed Status update - No beds at this time pt remains on wait list
--- NOTE | 2023-03-28 14:27 | PC.NURSE ---
Transfer center called for update on status, still awaiting a bed.
--- NOTE | 2023-03-28 15:45 | PC.NURSE ---
1543 Status check on bed - no bed assigned as of 1542 pt remains on bed wait list
[2023-03-28] MEDS: LORazepam (*CRX) 1 MG TABLET PO (16:32)
[2023-03-28] MEDS: LACTATED RINGERS 1,000 ML 100 ML IV CONT (16:33)
--- NOTE | 2023-03-28 19:29 | PC.NURSE ---
[facility] calls to get updated VS. They state they will call back when a bed becomes available.
[2023-03-29] VITALS (15 sets, daily range): BP systolic 102–121; BP diastolic 60–88; PULSE 86–118; RESP 11–22; O2SAT 99–100
--- NOTE | 2023-03-29 02:57 | PC.NURSE ---
[facility] CALLED THIS RN TO GIVE PT ROOM ASSIGNMENT. PT ROOM ASSIGNMENT WAS 911 BED 1. NUMBER TO CALL PT REPORT TO WAS [phone].
== END 2023-03-29 05:50 | disposition short-term general hospital (02) ==
PROVIDERS: Emergency Provider Emergency Medicine; PCP Family Medicine
DX: R41.82 Altered mental status, unspecified (principal); K65.1 Peritoneal abscess; E78.2 Mixed hyperlipidemia; I10 Essential (primary) hypertension; I25.10 Atherosclerotic heart disease of native coronary artery without angina pectoris; Z20.822 Contact with and (suspected) exposure to COVID-19
CPT/HCPCS: 36415; 36600; 70450; 71275; 74177; 80053; 81001; 82805; 82948; 83605; 83735; 84145; 84484; 85025; 85610; 85730; 87040; 87637; 87641; 93005; 96361; 96365; 96366; 96367; 99285; A9270; J0692; J3370; J7120; Q9967

== ENCOUNTER 2024-03-11 09:53 | Outpatient (CLI) | payer MEDICARE, SELFPAY | END 2024-03-11 09:54 | disposition home or self-care (01) | LOC: ANHAUDIO 09:56 | PROVIDERS: PCP Family Medicine; Visit Provider Family Medicine | DX: H90.3 Sensorineural hearing loss, bilateral (principal); H93.13 Tinnitus, bilateral | CPT/HCPCS: 92557; 92567 ==